=== PATIENT | female | born 1945 | race Caucasian/White ===

== ENCOUNTER 2016-11-28 06:39 | Day surgery (SDC) | payer MEDICARE, OTHER ==
[~2016-11-28] VITALS: Ht 165.1 cm; Wt 70.7 kg
[~2016-11-28 06:39] MED LIST: METF500 PO; SYNT137T PO; VOLT100T2 PO
[2016-11-28] MEDS ORDERED: IOHEXOL 350 MG/ML 50 ML BTL (for Cath Lab) OTHER ONE (06:40)
[2016-11-28 07:33] LABS: AUTOMATED NEUTROPHIL # 2.7 TH/MM3 (1.8-7.7); BASOPHIL % 0.6 % (0.0-2.0); EOSINOPHIL # 0.1 TH/MM3 (0-0.4); EOSINOPHIL % 2.3 % (0.0-4.0); HEMATOCRIT 34.6 % (35.0-46.0); HEMO FLAGS DIFF FINAL; LYMPH % 25.2 % (9.0-44.0); LYMPHOCYTE # 1.1 TH/MM3 (1.0-4.8); MEAN CELL VOLUME 74.3 FL (80.0-100.0); MEAN CORPUSCULAR HEMOGLOBIN 23.5 PG (27.0-34.0); MEAN CORPUSCULAR HGB CONC 31.7 % (32.0-36.0); MONO % 7.3 % (0.0-8.0); NEUT % 64.6 % (16.0-70.0); PLATELET COUNT 291 TH/MM3 (150-450); RED BLOOD COUNT 4.66 MIL/MM3 (4.00-5.30); RED CELL DISTRIBUTION WIDTH 17.4 % (11.6-17.2); WHITE BLOOD COUNT 4.2 TH/MM3 (4.0-11.0)
[2016-11-28 07:43] LABS: PROTHROMBIN TIME - PATIENT 10.6 SEC (9.8-11.6)
[2016-11-28 07:46] LABS: BICARBONATE 24.3 MEQ/L (21.0-32.0); POTASSIUM 3.7 MEQ/L (3.5-5.1)
[2016-11-28 07:58] VITALS: BP 126/75; PULSE 73; RESP 17; TEMP 98.1; O2SAT 98
[2016-11-28] MEDS ORDERED: ASPIRIN 81 MG CHEW TAB PO SCH (08:00)
[2016-11-28] MEDS ORDERED: ZANT150T2 PO (08:15)
[2016-11-28] MEDS ORDERED: CETI10 PO (08:15)
[2016-11-28] MEDS ORDERED: VOLT1GEL4 PO (08:15)
[2016-11-28] MEDS ORDERED: BEVA100P LEFT EYE (08:15)
[2016-11-28] MEDS ORDERED: MONT10TA2 PO (08:15)
[2016-11-28] MEDS ORDERED: LEVO100T63 PO (08:15)
[2016-11-28] MEDS ORDERED: VITA400C28 PO (08:15)
[2016-11-28] MEDS ORDERED: [UNRECOGNIZED DRUG - CODE] PO (08:15)
[2016-11-28] MEDS ORDERED: TRIA50P LEFT EYE (08:15)
[2016-11-28] MEDS ORDERED: ZETI10TA5 PO (08:15)
[2016-11-28] MEDS ORDERED: AREDS 2 EACH EYE (08:15)
[2016-11-28] MEDS ORDERED: MIDAZOLAM HCL 2 MG/2 ML VIAL ONE (08:21)
[2016-11-28] MEDS ORDERED: HEPARIN-NS/PF INJ 1,000 ML ONE (08:21)
--- NOTE | 2016-11-28 09:11 | CATHPROC ---
[facility] HIS Report Study Information Study Number Admission Scheduled Start Study Start [id number] Nov 28 2016 6:39AM 11/28/2016 Nov 28 2016 7:58AM [place] Service Cardiac Catheterization Admit Source Facility Department Other [facility] - Digital Court Reporter Physician and Clinical Staff Initial Kolby Donahue Featheredger And Reducer Machine Abhi Darden,JOSE Featheredger And Reducer Machine Ludmila Dueñas,JOSE Recorder Adrienne Mccall,RT(R) (BS) Scrub Preston HuitronRT(R) Procedures Performed Procedure Location (Site) Vessel Name Coronary Angiograms LCA Left Coronary Coronary Angiograms RCA Right Coronary L Heart Cath LV Gram-hand inj. LV LV Ventricle Equipment Time Charging Machine Operator Description Size Mfg Part Number Used/Scraped CATHETER, FR5 SWAN JARED 08:34 [employer] FR 5 [id number] *[id number] Used MONITOR TRANSDUCER, TRUWAVE [id number] 08:34 LUONG NIXON * Used W/STOCKCOCK *[id number] [id number] *[id number] [id number] *[id number] [id number] *[id number] [id number] *[id number] 08:34 MED[employer] PACK, CCL CUSTOM * Used *[id number] 08:34 Point[employer]st PACER PEN, SKIN DUAL W/ RULER * Used *[id number] PSI-4F- 08:35 [email or web address] MEDICAL SHEATH, FR4.5 PRELUDE 11CM FR 4.5 Used [id number] PSI-5F- 08:34 [email or web address] MEDICAL SHEATH, FR5.5 PRELUDE 11CM FR 5.5 Used 038ACT# [id number] 08:34 [email or web address] MEDICAL WIRE, 3MMJ .035 180CM 180CM Used *[id number] 08:34 NAMIC MANIFOLD, 4 PORT * Used *[id number] 08:34 NYCOMED OMNIPAQUE, 350 MG, 150ML 150ML [id number] Used [id number] 08:34 NARAYAN MEDICAL BLANKET,WARM AIR CCL * Used *[id number] History: Allergies Allergy Reaction codeine Sulfa Sulfa (Sulfonamide Antibiotics) ciprofloxacin History: Risk Factors Family History of Hypertension Dyslipidemia Previous [place] Previous Heart Failure Premature CAD Yes Yes No No No Prior Valve Prior PCI Prior CABG Surgery No No No Cerebrovascular Peripheral Artery Chronic Lung On Dialysis Diabetes Disease Disease Disease No No No No No History: Stress Tests Stress or Imaging Studies Performed No History: Other Current Smoker No Labs Hgb (g/dl) Hct (%) WBC (l/cumm) Platelets (thousands) 11.60-17.00 35.00-51.00 4.00-11.00 150.00-450.00 11.0 34.6 4.2 291 Glucose (mg/dl) BUN (mg/dl) Creatinine (mg/dl) BUN:Creatinine (1:x) 74.00-106.00 7.00-18.00 0.50-1.30 10.00-20.00 98 21 0.9 23.3 Na (meq/l) K (meq/l) 136.00-145.00 3.50-5.10 142 3.7 INR (PTT:PT) 0.90-1.10 1 CPK-MB (ng/ML) 0.50-3.60 Not Drawn Medication Medication Total Dose (Bolus/Oral) Medication Total Dosage/Unit 1% XYLOCAINE 20 mL VERSED 1 mg Medications (Bolus/Oral) Medication Time Given Dosage/Unit Administered By Reason 1% XYLOCAINE 11/28/2016 8:39:51 AM 20 mL AdityaKolby 20 mL 1% XYLOCAINE given in lab by Kolby Burgess in Right Groin via Subcutaneous. VERSED 11/28/2016 8:39:55 AM 1 mg Abhi Darden 1 mg VERSED given in lab by Abhi Darden RN in Left Antecubital via Peripheral IV. Medication (Drip) Medication Time Given Dosage/Unit Concentration/Unit Diluent (ml) Solution IV Solutions 11/28/2016 8:11:07 AM 0 mL (IV) 500 NaCl .9 IV Solutions given in lab by Abhi Darden RN in Left Antecubital via Peripheral IV. Pump/Drip Flow = 100 ml/hr using NaCl .9. Initial Case Assessment Cardiovascular HR Rhythm NIBP Chest Pain 75 reg 118/83 0 Edema Present Skin color Skin None Normal Warm Dry Circulatory - Right Pulses Dorsalis Pedis Femoral 2 2 Scale (0,1,2,3,4,d) Circulatory - Left Pulses Dorsalis Pedis Femoral 2 2 Scale (0,1,2,3,4,d) Circulatory - Lower Extremities Color Lower Right Color Lower Left Normal Normal Neurological State Oriented to time-place- Alert Moves all extremities person Respiration - General Respiration Rate SpO2 (%) (B/min) 15 96 Chronological Log Time Study Chronological Log 8:10:49 Patient arrived via Bed. 8:10:50 Patient Name, D.O.B, / Armband Verified By R.N. 8:10:51 Consent signed by the physician and the patient and verified by the Digital Court Reporter staff. 8:10:52 Pre-op and post- op instructions given; patient acknowledges understanding of instructions. 8:10:54 Verbal Stimulation=2 Physical Stimulation=2 Airway=2 Respiration=2 TOTAL=8. (0=absent, 1=li mited, 2=present) 8:10:55 Presedation assessment performed by Digital Court Reporter RN. 8:10:59 Patient has been NPO for More than 6Hrs. 8:11:01 Skin Breakdown none per pt 8:11:03 Patient Warmer Placed on the Table. 8:11:03 Leigh Prominences Protected 8:11:06 A # 20 IV was noted in the Antecubital (left). Grade = 0 IV Solutions given in lab by Abhi Darden, RN in Left Antecubital via Peripheral IV. Pump/Drip Flow = 100 ml/hr using 8:11:07 NaCl .9. 8:11:08 History and physical on the chart or being dictated. Assessment: Initial Case, HR=75 BPM, Rhythm=reg, CIBJ=639/83 mmhg, Chest Pain=0, Edema=None, Col or=Normal, Skin = Warm, Dry Right Pulses: Dino Ped=2, Femoral=2 Left Pulses: Dino Ped=2, Femoral=2 8:11:10 Lower Right Extremities: Color=Normal Lower Left Extremities: Color=Normal Neurological: State=Alert, Ox3, KELLEY Respiration: Resp=15 B/min, SpO2=96 % Vitals capture started with the following parameters, Patient=Adult, Interval=5 min, Initial Pre swfvs=915 mmHg, 8:17:57 Deflation Rate=5 mmHg, Cuff placed on Left Arm 8:18:28 HR=70 bpm, BHYV=029/83 mmhg, YlI7=115.0 %, Resp=8 B/min, Pain=0, Mariella=10, Mae=2 8:23:27 HR=74 bpm, OJTB=190/82 mmhg, SpO2=98.0 %, Resp=15 B/min, Pain=0, Mariella=10, Mae=2 8:24:52 Bilateral groins prepped with 2% chlorhexidine, and with a 3 min. waiting time. 8:25:34 Reference ECG taken 8:27:03 MD paged 8:27:22 MD responded 8:28:30 HR=75 bpm, QHDC=730/88 mmhg, SpO2=99.0 %, Resp=23 B/min, Pain=0, Mariella=10, Mae=2 8:30:53 Pressure channel 1 zeroed. 8:33:31 HR=77 bpm, PAQL=821/81 mmhg, OxG2=877.0 %, Resp=24 B/min, Pain=0, Mariella=10, Mae=2 8:36:36 MD arrived 8:38:30 HR=80 bpm, SRWI=919/80 mmhg, DjY6=619.0 %, Resp=24 B/min, Pain=0, Mariella=10, Mae=2 Time Out. Correct patient, correct procedure,correct physician, power injector not loaded with c ontrast with surgical 8:39:26 team present. Time Out Concurred by , individual staff in procedure 8:39:44 Case Start 8:39:51 20 mL 1% XYLOCAINE given in lab by Kolby Burgess in Right Groin via Subcutaneous. 8:39:55 1 mg VERSED given in lab by Abhi Darden, RN in Left Antecubital via Peripheral IV. 8:40:58 Access site was Right Femoral Artery. 8:41:05 A SHEATH, FR4.5 PRELUDE 11CM FR 4.5 was advanced into the Fem Art (right) using the Percutan eous technique. 8:43:29 HR=78 bpm, JDWG=428/85 mmhg, SpO2=98.0 %, Resp=5 B/min, Pain=0, Mariella=10, Mae=2 A JR 4.0 INFINITI CATHETER FR 4 was advanced over a wire. OMNIPAQUE, 350 MG, 150ML 150ML was use d for 8:44:20 injections. 8:45:01 The LV was manually injected with 8 cc's and visualized. OMNIPAQUE, 350 MG, 150ML 150ML used . Recorded Pressure: LV, HR=73, Condition=Condition 1 8:45:33 (Left Ventricle) LV 120/15/21 Recorded Pressure: LV, Ao, HR=73, Condition=Condition 1 8:45:36 (Left Ventricle) LV 117/4/8, (Aorta) Ao 121/72/95 Recorded Pressure: Ao, HR=71, Condition=Condition 1 8:46:16 (Aorta) Ao 131/74/99 8:46:29 The RCA was injected and visualized at various angles. OMNIPAQUE, 350 MG, 150ML 150ML used. 8:46:57 Catheter was removed A JL 4.0 INFINITI CATHETER FR 4 was advanced over a wire. OMNIPAQUE, 350 MG, 150ML 150ML was use d for 8:47:02 injections. 8:48:13 The LCA was injected and visualized at various angles. OMNIPAQUE, 350 MG, 150ML 150ML used. 8:48:28 HR=77 bpm, TZVN=408/84 mmhg, SpO2=90.0 %, Resp=15 B/min, Pain=0, Mariella=10, Mae=2 8:49:26 Catheter was removed 8:49:39 Case End 8:50:35 Sheath removed; pressure applied to access site. 8:50:51 Catheter(s) removed without difficulty 8:51:01 No case complications noted. 8:51:04 Cine recording checked. 8:51:08 Bedside Report will be given. 8:51:11 Contrast Scanned 8:51:21 A Left Heart Cath was performed. 8:53:33 HR=76 bpm, KEDG=703/78 mmhg, SpO2=94.0 %, Resp=10 B/min, Pain=0, Mariella=10, Mae=2 8:58:32 HR=78 bpm, IGPD=826/77 mmhg, SpO2=98.0 %, Resp=8 B/min, Pain=0, Mariella=10, Mae=2 9:03:33 HR=68 bpm, ENAG=187/84 mmhg, SpO2=98.0 %, Resp=9 B/min, Pain=0, Mariella=10, Mae=2 9:04:23 DOCU called. Spoke to Lavinia. 9:10:37 Sterile dressing applied to site 9:12:47 Patient moved to stretcher End Study - Contrast Media Used In Study Contrast Total Opened (mL) Total Used (mL) Total Wasted (mL) Omnipaque 30 30 0 End Study - Maximum Contrast Load Max Contrast Load (mL) 392.7 End Study - Radiation Exposure Fluoro Time (minutes) 2.1 End Study - Sheaths Sheaths Pulled By Sheath Hold Time (min) Preston Huitron End Study - Patient Disposition Complications Transferred To Interventional Outcome No Digital Court Reporter Holding No attempt made
[2016-11-28] MEDS ORDERED: SODIUM CHLORIDE 0.9% FLUSH 10 ML FLUSH IV FLUSH PRN (09:15)
[2016-11-28] MEDS ORDERED: MISC INFORMATION XX ONE (09:30)
[2016-11-28] MEDS ORDERED: SODIUM CHLORIDE 0.9% FLUSH 10 ML FLUSH IV FLUSH SCH (21:00)
--- NOTE | 2016-11-29 18:57 | EKG ---
Date Performed: 11/28/2016 Time Performed: 08:06:16 PTAGE: 71 years EKG: Sinus rhythm . Possible septal infarct - age undetermined Low QRS voltages in precordial leads Abnormal ECG NO PREVIOUS TRACING DOCTOR: Joe Stevenson Interpretating Date/Time 11/29/2016 18:55:37
--- NOTE | 2016-11-30 22:21 | MA ---
cc: NAEEM LÓPEZ M.D. DATE 11/28/2016 PROCEDURE Left heart catheterization. Left ventriculography. Coronary angiography. INDICATION Congestive heart failure [place] [employer] class II congestive heart failure. Anginal equivalent unstable angina, [place] [employer] class II angina. DETAILS OF THE PROCEDURE The patient was brought to the cardiac catheterization laboratory, prepped and draped in the usual sterile fashion. 10 cc of 1% lidocaine was used to locally anesthetize the right common femoral artery. A 4-[place] sheath was placed in the right common femoral artery. A 4-[place] JR-4, JL-4 catheters were used to perform left and right coronary angiography and left ventriculography. FINDINGS LV pressure is 127/6-7, EF 60%. The right coronary artery appears to be codominant. It has an RV branch that has a proximal bifurcation with the remainder of the right coronary artery. Left main coronary artery has no significant disease angiographically. The left circumflex vessel has no significant disease angiographically. The first obtuse marginal vessel is a small to medium sized vessel, tortuous with no significant disease angiographically. Second obtuse marginal vessel is a medium-sized vessel with a mid to distal bifurcation with no significant obstructive disease. The vessel diameter at the bifurcation is probably 1.5 mm in diameter. The remainder of the AV groove, left circumflex vessel has no significant disease angiographically. Appears to give off a small distal left posterior descending coronary artery. The LAD is transapical. It is tortuous. It may have some subtle disease in the mid segment at a 170 degree bend, maybe 5-10% angiographically. Also noted is a small to medium sized ramus intermedius vessel which has no significant obstructive disease angiographically. CONCLUSION 1. Angiographically minimal to mild one-vessel coronary artery disease in a codominant system as detailed above. 2. Normal LV systolic function, ejection fraction 60%. 3. Normal LV pressures 125/06-07. 4. No evidence of a cardiogenic etiology to the patient's dyspnea. 5. Recommend noncardiac evaluation for the patient's dyspnea. MD ROSANNA Garcia/KK /9:02 AM /10:05 PM
== END 2016-11-28 11:41 | disposition home or self-care (01) ==
LOC: HCAT 06:39 → HDIC 06:40 → HCAT 11:41
PROVIDERS: ATTEND Internal Medicine Interventional Cardiology
DX: I50.9 Heart failure, unspecified (principal); I20.0 Unstable angina; R06.00 Dyspnea, unspecified; I42.9 Cardiomyopathy, unspecified; E11.9 Type 2 diabetes mellitus without complications; E78.00 Pure hypercholesterolemia, unspecified; E03.9 Hypothyroidism, unspecified; Z79.899 Other long term (current) drug therapy
CPT/HCPCS: 80048; 85025; 85610; 93005; 93458; C1769; C1893; J1644; J2250; Q9967